=== PATIENT | female | born 2000 | race Caucasian/White ===

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

== ENCOUNTER 2019-09-05 13:28 | Emergency (ER) | payer SELFPAY ==
[2019-09-05 13:36] VITALS: BP 105/55
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
[2019-09-05] MEDS: SODIUM CHLORIDE 0.9% 1000 ML 1,000 ML IV ONE (14:49)
[2019-09-05] MEDS: METOCLOPRAMIDE 10 MG/2 ML INJ IV ONE (14:50)
[2019-09-05] MEDS: diphenhydrAMINE 50 MG/ML VIAL IV ONE (14:50)
[2019-09-05 14:55] LABS: Bilirubin,Urine NEG (Negative); Blood,Urine NEG (Negative); Color,Urine Yellow (Yellow); Mucus,Urine 3+ /HPF; Protein,Urine <15 mg/dL mg/dL (Negative); Urobilinogen,Urine < 2.0 mg/dL (<2.0); WBC,Urine < 1.0 /HPF (0.0-6.0)
[2019-09-05 15:17] LABS: Basophils # (Auto) 0.1 K/mm3 (0.0-0.1); Basophils % (Auto) 0.7 % (0.0-1.8); Eosinophils % (Auto) 0.2 % (0.0-4.3); Hematocrit 43.3 % (30.3-42.9); Hemoglobin 14.2 gm/dl (10.1-14.3); Lymphocytes # (Auto) 1.5 K/mm3 (1.2-5.4); Lymphocytes % (Auto) 14.2 % (13.4-35.0); Mean Corpuscular HGB Conc 33 % (30-34); Mean Corpuscular Volume 93 fl (79-97); Monocytes # (Auto) 0.9 K/mm3 (0.0-0.8); Monocytes % (Auto) 8.7 % (0.0-7.3); Platelet Count 222 K/mm3 (140-440); Red Blood Count 4.67 M/mm3 (3.65-5.03); Red Cell Distribution Width 15.2 % (13.2-15.2)
[2019-09-05 15:30] LABS: Alanine Aminotransferase 8 units/L (7-56); Albumin 4.6 g/dL (3.9-5); BUN/Creatinine Ratio 8; Blood Urea Nitrogen 4 mg/dL (7-17); Calcium 9.7 mg/dL (8.4-10.2); Hemolysis Index 8
== END 2019-09-05 15:15 | disposition left against medical advice (07) ==
LOC: ED 13:28
DX: R11.2 Nausea with vomiting, unspecified (principal); R19.7 Diarrhea, unspecified; F32.9 Major depressive disorder, single episode, unspecified; F41.9 Anxiety disorder, unspecified; F43.10 Post-traumatic stress disorder, unspecified; F17.200 Nicotine dependence, unspecified, uncomplicated
CPT/HCPCS: 36415; 80053; 81001; 83690; 84702; 85025; 96374; 96375; 99283; J1200; J2765; J7030

== ENCOUNTER 2019-10-03 10:25 | Emergency (ER) | payer SELFPAY ==
[2019-10-03 10:33] VITALS: BP 122/82
[2019-10-03 11:25] LABS: Bilirubin,Urine NEG (Negative); Blood,Urine NEG (Negative); Color,Urine Yellow (Yellow); Mucus,Urine 3+ /HPF; Protein,Urine <15 mg/dL mg/dL (Negative)
[2019-10-03 11:31] LABS: Alanine Aminotransferase 8 units/L (7-56); Albumin 4.8 g/dL (3.9-5); BUN/Creatinine Ratio 20; Blood Urea Nitrogen 8 mg/dL (7-17); Calcium 10.1 mg/dL (8.4-10.2); Hemolysis Index 32
[2019-10-03 11:35] LABS: Basophils # (Auto) 0.1 K/mm3 (0.0-0.1); Basophils % (Auto) 0.8 % (0.0-1.8); Eosinophils % (Auto) 0.5 % (0.0-4.3); Hematocrit 45.8 % (30.3-42.9); Hemoglobin 15.2 gm/dl (10.1-14.3); Lymphocytes # (Auto) 1.7 K/mm3 (1.2-5.4); Lymphocytes % (Auto) 17.5 % (13.4-35.0); Mean Corpuscular HGB Conc 33 % (30-34); Mean Corpuscular Volume 92 fl (79-97); Monocytes # (Auto) 0.7 K/mm3 (0.0-0.8); Monocytes % (Auto) 7.8 % (0.0-7.3); Red Blood Count 4.97 M/mm3 (3.65-5.03); Red Cell Distribution Width 14.7 % (13.2-15.2)
[2019-10-03] MEDS ORDERED: ACETAMINOPHEN 325 MG TAB PO ONE (12:13)
[2019-10-03 12:47] LABS: Platelet Count 246 K/mm3 (140-440)
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
--- NOTE | 2019-10-03 13:06 | Ultrasound Report ---
OB Ultrasound HISTORY: pelvic pain. TECHNIQUE: Grayscale and color imaging performed. COMPARISON: None FINDINGS: Uterus measures 14.6 x 7.6 x 9.5 cm and contains an intrauterine gestation with crown-rump length of 5.7 cm corresponding with an EGA of 12 weeks and 2 days. Heart rate is 157 bpm. No acute ab normality identified. No appreciable pelvic free fluid. Both ovaries appear normal. IMPRESSION: Single viable intrauterine gestation as above with no acute abnormality. Signer Name: Noe Boyce MD Signed: 10/03/2019 1:01 PM Workstation Name: [id number]
== END 2019-10-03 13:37 | disposition home or self-care (01) ==
LOC: ED 10:25
DX: O26.891 Other specified pregnancy related conditions, first trimester (principal); Z3A.12 12 weeks gestation of pregnancy
CPT/HCPCS: 36415; 76801; 80053; 81001; 83690; 84702; 84703; 85025

== ENCOUNTER 2020-03-16 13:08 | Outpatient (CLI) | payer MEDICAID ==
[2020-03-16 13:31] VITALS: BP 121/70
[2020-03-16] MEDS ORDERED: LACTATED RINGERS 1,000 ML IV SCH (14:00)
[2020-03-16 14:25] LABS: Bacteria,Urine 1+ /HPF (Negative); Bilirubin,Urine NEG (Negative); Blood,Urine NEG (Negative); Color,Urine Yellow (Yellow); Mucus,Urine FEW /HPF; Protein,Urine <15 mg/dL mg/dL (Negative); Urobilinogen,Urine < 2.0 mg/dL (<2.0)
[2020-03-16] MEDS ORDERED: FLUCONAZOLE 200 MG TAB PO ONE (16:00)
[2020-03-16] MEDS ORDERED: TERBUTALINE 1 MG/1 ML INJ SUB-Q ONE (16:31)
[2020-03-16] MEDS ORDERED: TERBUTALINE 1 MG/1 ML INJ IVP ONE ×2 (18:00→19:00)
== END 2020-03-16 19:03 | disposition home or self-care (01) ==
LOC: TRG 13:08 → APU 13:08 → TRG 19:03
PROVIDERS: ATTEND Obstetrics & Gynecology
DX: O26.893 Other specified pregnancy related conditions, third trimester (principal); R10.2 Pelvic and perineal pain; M54.9 Dorsalgia, unspecified; O47.03 False labor before 37 completed weeks of gestation, third trimester; O99.343 Other mental disorders complicating pregnancy, third trimester; F31.9 Bipolar disorder, unspecified; Z87.891 Personal history of nicotine dependence; Z3A.35 35 weeks gestation of pregnancy
CPT/HCPCS: 59025; 81001; 96361; 96365; 96372; J3105; J7120; Q0177; 96360

== ENCOUNTER 2020-04-13 05:10 | Inpatient (IN) | payer MEDICAID ==
[2020-04-13] MEDS ORDERED: AMPICILLIN/NS 2 GM/100 ML 2 GM/100 ML BAG IV ONE (05:41)
[2020-04-13] MEDS ORDERED: LIDOCAINE (2%) 20 MG/1 ML VIAL 20 ML MDV INFILTRATI ONE ×2 (05:41→10:31)
[2020-04-13] MEDS ORDERED: TERBUTALINE 1 MG/1 ML INJ SUB-Q PRN (05:41)
[2020-04-13] MEDS ORDERED: ePHEDrine SULFATE 50 MG/1 ML INJ IV PRN (05:41)
[2020-04-13] MEDS ORDERED: ONDANSETRON 4 MG/2 ML INJ IV PRN ×3 (05:41→16:46)
[2020-04-13] MEDS ORDERED: MINERAL OIL 30 ML ORAL LIQD PO PRN (05:41)
[2020-04-13] MEDS ORDERED: BUTORPHANOL 2 MG/1 ML INJ IV PRN (05:41)
[2020-04-13] MEDS: LACTATED RINGERS 1,000 ML IV SCH ×3 (06:12→12:19)
[2020-04-13] MEDS: OXYTOCIN DRIP 30 UNITS/500 ML BAG IV SCH ×2 (06:13→11:23)
[2020-04-13 06:24] LABS: Hemoglobin 13.5 gm/dl (10.1-14.3); Mean Corpuscular HGB Conc 34 % (30-34); Mean Corpuscular Volume 93 fl (79-97); Platelet Count 227 K/mm3 (140-440); Red Cell Distribution Width 13.9 % (13.2-15.2)
[2020-04-13] MEDS ORDERED: NALOXONE 2 MG/2 ML INJ IV PRN (07:07)
[2020-04-13] MEDS ORDERED: diphenhydrAMINE 50 MG/ML VIAL IV PRN (07:07)
[2020-04-13] MEDS ORDERED: NalbUPHINE 10 MG/1 ML INJ IV PRN (07:07)
--- NOTE | 2020-04-13 07:10 | Anesthesia Consultation ---
Anesthesia Consult and Med Hx Date of service: 04/13/20 - Airway Anesthetic Teeth Evaluation: Good ROM Head & Neck: Adequate Mental/Hyoid Distance: Adequate Mallampati Class: Class II Intubation Access Assessment: Probably Good - Pulmonary Exam CTA: Yes - Cardiac Exam Cardiac Exam: RRR - Pre-Operative Health Status ASA Pre-Surgery Classification: ASA2 Proposed Anesthetic Plan: Epidural - Pulmonary Hx Smoking: No Hx Asthma: No COPD: No Hx Pneumonia: No Hx Sleep Apnea: No - Cardiovascular System Hx Hypertension: No Hx Heart Attack/AMI: No Hx Angina: No - Central Nervous System Hx Seizures: No Hx Psychiatric Problems: Yes (anxiety, depression) - Gastrointestinal Hx Gastroesophageal Reflux Disease: No - Endocrine Hx Renal Disease: No Hx End Stage Renal Disease: No Hx Insulin Dependent Diabetes: No Hx Non-Insulin Dependent Diabetes: No Hx Hypothyroidism: No Hx Hyperthyroidism: No - Hematic Hx Anemia: No Hx Sickle Cell Disease: No - Other Systems Hx Alcohol Use: No
--- NOTE | 2020-04-13 07:12 | Progress Note ---
Labor Epidural - Labor Epidural Start Time: 06:45 Stop Time: 07:05 Performed by:: JAYLENE RIOS (Ciara MENDOZA) Procedure: Patient is requesting a laboring epidural for laboring pain. Patient IDed, H&P reviewed, all questions and concerns were answered, and consent was signed. Timeout was performed at bedside. Patient in sitting position. Sterile prep and drape was performed. 3ml of 1% lidocaine skin wheal at L[4]- L [5]. 18- gauge Touhy epidural needle was advanced to loss of resistance with air technique. Negative CSF negative blood. Epidural catheter advanced to [12] centimeters. [-] Aspiration [-] test dose. Sterile dressing applied. Patient tolerated procedure.
[2020-04-13] MEDS ORDERED: fentaNYL-BUPIV 2 MCG/ML-0.125% 200 MCG/100 ML BAG EPIDURAL SCH (08:00)
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
[2020-04-13] MEDS ORDERED: AZITHROMYCIN 250 MG TAB PO SCH (08:45)
[2020-04-13] MEDS ORDERED: AMPICILLIN/NS 1 GM/50 ML 1 GM/50 ML BAG IV ONE (10:00)
[2020-04-13] MEDS ORDERED: FLU VACC QUAD 2020-2021 (6 months +)/PF 60 0.5 ML SYRINGE IM ONE (12:00)
--- NOTE | 2020-04-13 13:37 | Procedure Note ---
OB Delivery Note - Delivery Date of Delivery: 04/13/20 Surgeon: ANDER MABRY Estimated blood loss: other (400 mL) - Vaginal Delivery presentation: vertex Delivery position: OA Intrapartum events: PROM->1hr before delivery, meconium (terminal ), decreased FHT variability Delivery induction: none Delivery augmentation: rupture of membranes Delivery monitor: external FHT, external uterine Route of delivery: Delivery placenta: spontaneous Episiotomy: midline Delivery laceration: 2nd degree Delivery repair: vicryl Anesthesia: epidural - A at 1 minute: 9 at 5 minutes: 9 Infant Gender: Male (3730g (8lb 3.oz) @ 1304 pm)
[2020-04-13] MEDS ORDERED: WITCH HAZEL/ GLYCERIN PAD TP PRN (16:46)
[2020-04-13] MEDS ORDERED: HYDROcodone/ACETAMINOPHEN 5-325 MG TAB PO PRN (16:46)
[2020-04-13] MEDS ORDERED: LANOLIN/ZINC/DIMETHICONE (LANSINOH) 7 GM TP PRN ×2 (16:46)
[2020-04-13] MEDS ORDERED: ACETAMINOPHEN 325 MG TAB PO PRN (16:46)
[2020-04-13] MEDS ORDERED: MAGNESIUM HYDROXIDE (MOM) ORAL LIQD UDC PO PRN (16:46)
[2020-04-13] MEDS ORDERED: diphenhydrAMINE 25 MG CAP PO PRN (16:46)
[2020-04-13] MEDS ORDERED: PROMETHAZINE 25 MG TAB PO PRN (16:46)
[2020-04-13] MEDS ORDERED: BENZOCAINE/MENTHOL 20/0.5% TOP SPRAY 56 GM TP PRN (16:46)
[2020-04-13] MEDS ORDERED: PROMETHAZINE 25 MG RECT SUPP PR PRN (16:46)
[2020-04-13] MEDS: IBUPROFEN 600 MG TAB PO SCH ×2 (18:32→23:29)
[2020-04-13] MEDS: FERROUS SULFATE 325 MG TAB PO SCH (23:30)
[2020-04-13] MEDS: DOCUSATE SODIUM 100 MG CAP PO SCH (23:31)
[2020-04-14 00:43] LABS: Hematocrit 32.7 % (30.3-42.9); Hemoglobin 10.8 gm/dl (10.1-14.3)
[2020-04-14] MEDS: IBUPROFEN 600 MG TAB PO SCH ×2 (05:17→16:15)
[2020-04-14] MEDS ORDERED: DIPHtheria,PERTUSSIS(ACELL),TETANUS VACCINE/PF 0.5 ML VIAL IM ONE (06:00)
--- NOTE | 2020-04-14 08:36 | Progress Note ---
Assessment and Plan A: PPD1 s/p Vital signs and labs stable DID, BPD not medicated, stable Constipation P: Colace PRN Discharge to home today Subjective - Subjective Date of service: 04/14/20 Principal diagnosis: s/p Interval history: PPD1 s/p Patient reports: appetite normal, voiding normally, pain well controlled, ambulating normally, no bowel movement : doing well Objective - Vital Signs Latest vital signs: Vital Signs Temp Pulse Resp BP BP Pulse Ox 04/14/20 00:47 18 04/14/20 00:33 98.6 F 72 20 101/62 98 04/13/20 19:55 99.0 F 84 20 105/53 97 04/13/20 16:37 99.0 F 80 20 127/87 04/13/20 15:40 72 119/59 04/13/20 15:39 81 97 04/13/20 15:38 92 H 153/72 04/13/20 15:34 80 99 04/13/20 15:29 81 98 04/13/20 15:24 81 99 04/13/20 15:23 83 134/68 04/13/20 15:19 87 99 04/13/20 15:14 68 100 04/13/20 15:09 70 99 04/13/20 15:08 80 113/79 04/13/20 15:04 76 100 04/13/20 14:59 83 100 04/13/20 14:54 73 138/77 100 04/13/20 14:49 65 56 L 04/13/20 14:44 105 H 100 04/13/20 14:42 77 91 04/13/20 14:39 76 100 04/13/20 14:38 62 117/60 04/13/20 14:34 67 99 04/13/20 14:29 72 100 04/13/20 14:24 73 98 04/13/20 14:23 74 119/61 04/13/20 14:19 70 96 04/13/20 14:16 78 92 04/13/20 14:14 99.0 F 74 20 99 04/13/20 14:10 82 94 04/13/20 14:09 72 97 04/13/20 14:08 63 120/61 04/13/20 14:04 76 98 04/13/20 13:59 76 99 04/13/20 13:58 76 87 04/13/20 13:54 67 100 04/13/20 13:53 75 117/64 04/13/20 13:49 68 100 04/13/20 13:48 78 91 04/13/20 13:44 75 98 04/13/20 13:39 78 96 04/13/20 13:38 62 124/69 04/13/20 13:34 82 94 04/13/20 13:29 68 100 04/13/20 13:24 70 100 04/13/20 13:23 66 122/62 04/13/20 13:19 67 100 04/13/20 13:14 75 100 04/13/20 13:09 68 100 04/13/20 13:08 88 120/67 04/13/20 13:04 121 H 100 04/13/20 12:59 91 H 100 04/13/20 12:55 74 132/75 04/13/20 12:54 74 100 04/13/20 12:49 74 100 04/13/20 12:44 66 100 04/13/20 12:39 70 100 04/13/20 12:38 62 111/69 04/13/20 12:34 75 99 04/13/20 12:29 67 99 04/13/20 12:24 68 99 04/13/20 12:23 63 106/66 04/13/20 12:19 61 100 04/13/20 12:16 61 109/63 04/13/20 12:15 98.9 F 61 20 109/63 04/13/20 12:14 63 100 04/13/20 12:10 61 117/65 04/13/20 12:09 64 100 04/13/20 12:04 66 100 04/13/20 11:59 64 100 04/13/20 11:54 77 100 04/13/20 11:53 60 117/73 04/13/20 11:49 63 100 04/13/20 11:44 62 100 04/13/20 11:39 66 112/70 100 04/13/20 11:34 65 100 04/13/20 11:29 63 100 04/13/20 11:24 61 100 04/13/20 11:23 60 113/67 04/13/20 11:19 60 100 04/13/20 11:14 61 100 12/08/20 11:09 60 117/62 100 04/13/20 11:04 71 96 04/13/20 10:59 61 100 04/13/20 10:55 63 136/59 04/13/20 10:54 62 100 04/13/20 10:49 68 100 04/13/20 10:47 97.3 F L 20 04/13/20 10:45 80 87 04/13/20 10:44 65 100 04/13/20 10:39 64 98 04/13/20 10:38 60 105/71 04/13/20 10:34 61 100 04/13/20 10:29 60 100 04/13/20 10:24 61 98 04/13/20 10:19 60 100 04/13/20 10:14 76 100 04/13/20 10:09 72 100 04/13/20 10:08 60 117/76 04/13/20 10:04 58 L 100 04/13/20 09:59 68 100 04/13/20 09:58 66 79 L 04/13/20 09:54 58 L 115/72 100 04/13/20 09:49 58 L 100 04/13/20 09:44 62 90 04/13/20 09:43 69 93 04/13/20 09:39 63 118/67 100 04/13/20 09:34 54 L 100 04/13/20 09:29 55 L 100 04/13/20 09:25 71 115/66 04/13/20 09:24 64 100 04/13/20 09:23 66 82 L 04/13/20 09:19 57 L 100 04/13/20 09:14 57 L 100 04/13/20 09:09 56 L 113/62 100 04/13/20 09:06 76 80 L 04/13/20 09:05 57 L 110/61 04/13/20 09:04 55 L 100 04/13/20 08:59 54 L 100 04/13/20 08:54 54 L 100 04/13/20 08:53 53 L 112/64 04/13/20 08:49 58 L 100 04/13/20 08:47 66 82 L 04/13/20 08:44 66 100 04/13/20 08:41 63 85 04/13/20 08:39 59 L 100 Intake and Output 04/13/20 04/14/20 04/14/20 23:59 07:59 15:59 Intake Total 400 200 Output Total 1700 700 Balance -1300 -500 Intake: Oral 400 200 Output: Urine 1700 700 Void 1700 700 Other: Total, Intake Amount 200 200 Total, Output Amount 700 700 - Exam Abdomen: Present: soft. Absent: distention Uterus: Present: firm, fundal height below umbilicus. Absent: bogginess Extremities: Present: normal
--- NOTE | 2020-04-14 08:38 | Discharge Summary ---
Providers - Providers Date of Admission: 04/13/20 05:41 Date of discharge: 04/14/20 Attending physician: CURTIS MANCERA 04/13/20 16:46 Consult to Train Examiner [CONS] Routine Reason For Exam: assistance with , SNS Primary care physician: CURTIS MANCERA Hospitalization Reason for admission: active labor, IUP at term Delivery: Laceration: 2nd degree Other procedures: none complications: none Discharge diagnosis: IUP at term delivered Condition at discharge: Good Disposition: DC-01 TO HOME OR SELFCARE Plan - Discharge Medications Prescriptions: Ibuprofen [Motrin] 600 mg PO Q6H PRN #60 tablet PRN Reason: Pain - Provider Discharge Summary Additional instructions: [] Smoking cessation referral if applicable(refer to patient education folder for contact #) [] Refer to [facility] Booklet Call your doctor immediately for: * Fever > 100.5 * Heavy vaginal bleeding ( >1 pad per hour) * Severe persistent headache * Shortness of breath * Reddened, hot, painful area to leg or breast * Drainage or odor from incision. * Keep incision clean and dry at all times and follow doctor's instructions regarding bathing/showering - Follow up plan Follow up: ANDER MABRY MD [Staff Physician] - 14 Days (Please call office to schedule appointment.)
[2020-04-14] MEDS: FERROUS SULFATE 325 MG TAB PO SCH (10:55)
[2020-04-14] MEDS: DOCUSATE SODIUM 100 MG CAP PO SCH (10:55)
--- NOTE | 2020-04-14 11:46 | Post Anesthesia Evaluation ---
- Post Anesthesia Evaluation Patient Participated: Yes Airway Patent: Yes Stable Respiratory Function: Yes Nausea/Vomiting: No Temp > 96.8F: Yes Pain Manageable: Yes Adequeate Hydration: Yes Anesthesia Complications: No Block Receding Appropriately: Yes Patient on Ventilator: No
[2020-04-14] MEDS ORDERED: MEASLES, MUMPS & RUBELLA 12,500 UNIT/0.5 ML VACCINE SUB-Q ONE (13:37)
[2020-04-14 16:17] VITALS: BP 129/61
== END 2020-04-14 16:29 | disposition home or self-care (01) | DRG 775 ==
LOC: TRG 05:10 → APU 05:15 → TRG 05:41 → LD 05:41 → OB 16:36
PROVIDERS: ADMIT Obstetrics & Gynecology; ATTEND Obstetrics & Gynecology
PROC: 10E0XZZ Delivery of Products of Conception, External Approach (ICD-10-PCS; principal; 2020-04-13)
PROC: 3E0R3BZ Introduction of Anesthetic Agent into Spinal Canal, Percutaneous Approach (ICD-10-PCS; 2020-04-13)
PROC: 00HU33Z Insertion of Infusion Device into Spinal Canal, Percutaneous Approach (ICD-10-PCS; 2020-04-13)
PROC: 0W8NXZZ Division of Female Perineum, External Approach (ICD-10-PCS; 2020-04-13)
PROC: 0HQ9XZZ Repair Perineum Skin, External Approach (ICD-10-PCS; 2020-04-13)
PROC: 10907ZC Drainage of Amniotic Fluid, Therapeutic from Products of Conception, Via Natural or Artificial Opening (ICD-10-PCS; 2020-04-13)
PROC: 3E0234Z Introduction of Serum, Toxoid and Vaccine into Muscle, Percutaneous Approach (ICD-10-PCS; 2020-04-14)
PROC: 3E0134Z Introduction of Serum, Toxoid and Vaccine into Subcutaneous Tissue, Percutaneous Approach (ICD-10-PCS; 2020-04-14)
DX: O99.824 Streptococcus B carrier state complicating childbirth (principal); Z37.0 Single live birth; Z3A.39 39 weeks gestation of pregnancy; Z82.49 Family history of ischemic heart disease and other diseases of the circulatory system; Z83.3 Family history of diabetes mellitus; Z80.9 Family history of malignant neoplasm, unspecified; O42.92 Full-term premature rupture of membranes, unspecified as to length of time between rupture and onset of labor; O77.0 Labor and delivery complicated by meconium in amniotic fluid; O70.1 Second degree perineal laceration during delivery; Z20.828 Contact with and (suspected) exposure to other viral communicable diseases
CPT/HCPCS: 36415; 59025; 76815; 76819; 85014; 85018; 85027; 86592; 86850; 86900; 86901; 96360; 96361; G0378; J0290; J0595; J2590; J7120; U0003

== ENCOUNTER 2020-05-18 01:55 | Emergency (ER) | payer MEDICAID ==
[2020-05-18 02:07] VITALS: BP 135/82
[2020-05-18] MEDS ORDERED: IBUPROFEN 600 MG TAB PO ONE (02:16)
[2020-05-18] MEDS ORDERED: ONDANSETRON 4 MG ODT TAB PO ONE (02:16)
[2020-05-18] MEDS ORDERED: HYDROcodone/ACETAMINOPHEN 5-325 MG TAB PO ONE (02:16)
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
== END 2020-05-18 04:36 | disposition home or self-care (01) ==
LOC: ED 01:55
DX: S00.03XA Contusion of scalp, initial encounter (principal); M62.830 Muscle spasm of back; M62.838 Other muscle spasm; F17.200 Nicotine dependence, unspecified, uncomplicated; Z98.890 Other specified postprocedural states; Z79.899 Other long term (current) drug therapy; Y04.2XXA Assault by strike against or bumped into by another person, initial encounter; Y93.89 Activity, other specified; Y92.89 Other specified places as the place of occurrence of the external cause; Y99.8 Other external cause status
CPT/HCPCS: 70450; 70486; 72100; 72125; Q0162